=== PATIENT | female | born 1970 | race Caucasian/White ===

== ENCOUNTER 2020-04-15 08:48 | Outpatient (CLI) | payer BC ==
--- NOTE | 2020-04-15 14:23 | MRI ---
RIGHT HIP MRI WITHOUT IV CONTRAST: HISTORY: Worsening hip pain. FINDINGS: Multiplanar, multisequence MRI examination of the right hip is performed. There is some bilateral hi p joint arthrosis with some acetabular osteophytosis and some subchondral cystic changes involving th e left hip with bilateral hip joint space loss. Abnormal signal associated with the superior labrum on the right side, evidence for degenerative labral tear. Minimal fluid density involving the latera l insertion region of the gluteus minimus and gluteus medias femoral tendon insertion regions, eviden ce for undersurface and minimal delaminating tearing, partial thickness. No complete full-thickness retraction tear. No evidence for abnormal marrow signal to suggest avascular necrosis, fracture, or acute stress injury. IMPRESSION: Bilateral hip joint arthrosis with some joint space loss bilaterally. Evidence for irregularity and blunting of the superior right hip labrum, evidence for degenerative te aring and fraying. Evidence for partial thickness undersurface and interstitial tearing of the gluteus minimus and anter ior lateral gluteus medius tendon insertions. No evidence for other acute process. POS: [facility]RE
== END 2020-04-15 08:49 | disposition home or self-care (01) ==
LOC: MRI 08:48
PROVIDERS: ATTEND Family Medicine
DX: M25.551 Pain in right hip (principal); S76.011A Strain of muscle, fascia and tendon of right hip, initial encounter; S73.101A Unspecified sprain of right hip, initial encounter; M16.0 Bilateral primary osteoarthritis of hip